=== PATIENT | female | born 1960 | race Hispanic/Latino ===

== ENCOUNTER 2017-06-28 21:12 | Emergency (ER) | payer MEDICARE ==
[~2017-06-28] VITALS: Ht 162.6 cm; Wt 80.7 kg
[2017-06-28] MEDS ORDERED: KETOROLAC TROMETHAMINE 30 MG/ML VIAL IM STA (21:46)
[2017-06-28] MEDS ORDERED: CYCLOBENZAPRINE10 MG PO (21:49)
[2017-06-28 22:09] VITALS: BP 150/88
== END 2017-06-28 22:20 | disposition home or self-care (01) ==
LOC: FSED 21:12
DX: M54.16 Radiculopathy, lumbar region (principal); E11.42 Type 2 diabetes mellitus with diabetic polyneuropathy; G89.29 Other chronic pain
CPT/HCPCS: 99282; J1885

== ENCOUNTER → 2020-02-06 | Outpatient (CLI) | payer MEDICARE, OTHER ==
[~2020-02-06] MED LIST: CYCLOBENZAPRINE10 MG PO
--- NOTE | 2020-02-06 13:10 | Diagnostic Imaging Report ---
Thyroid ultrasound CPT code: 04644 History: Hypothyroidism, neck swelling Comparison: None Findings: The thyroid echotexture is normal. Vascularity is normal. The right lobe measures 3.6 x 1.4 x 1.7 cm. The left lobe measures 3.0 x 0.9 x 1.3 cm. The isthmus measures 0.4 cm. Nodules (measurements are AP, transverse, craniocaudal): Right Lobe: Lower pole 1.3 x 1.1 x 1.0 cm solid (2 points), hypoechoic (2 points), wider than tall, smoothly circumscribed nodule with peripheral rim calcifications (2 points). Left Lobe: Lower pole 0.5 cm cystic nodule without calcifications (0 points). Isthmus: No cystic mass or discrete solid nodule identified. Lymph Nodes: No cervical lymph nodes are identified. Parathyroids: Not visualized. IMPRESSION: Right lower lobe 1.3 cm peripherally calcified solid hypoechoic nodule (6 points, TI-RADS 4). Recommend thyroid ultrasound follow-up at 1, 2, 3, and 5 years. Left lower pole cystic nodule is not suspicious. ACR glossary of thyroid rads TI-RADS 1: No focal lesion. TI-RADS 2: Not suspicious. TI-RADS 3: Mildly suspicious (recommend FNA is greater than or equal to 2.5 cm; follow-up at 1, 3, and 5 years if greater than or equal to 1.5 cm) TI-RADS 4: Moderately Suspicious (recommend FNA is greater than or equal to 1.5 cm; follow-up at 1, 2, 3, and 5 years) TI-RADS 5: Highly suspicious (recommend FNA is greater than or equal to 10 mm) TI-RADS 6: Biopsy-proven malignancy Signed by: Nichole Falcon MD on 02/06/2020 1:07 PM
== END ==
LOC: US 11:27
PROVIDERS: ATTEND Internal Medicine
DX: E03.9 Hypothyroidism, unspecified (principal); R22.1 Localized swelling, mass and lump, neck
CPT/HCPCS: 76536